=== PATIENT | male | born 1975 | race Two or more races ===

== ENCOUNTER 2019-06-28 15:09 | Emergency (ER) | payer OTHER ==
[~2019-06-28] VITALS: Ht 172.7 cm; Wt 132.9 kg
[~2019-06-28 15:09] MED LIST: FIORICET 50-301 EACH; FIORICET 50-321 EACH PO
[2019-06-28] MEDS ORDERED: TOPROL XL25 M1 (15:27)
== END 2019-06-28 20:29 | disposition home or self-care (01) ==
LOC: ER 15:09
DX: R07.89 Other chest pain (principal); F06.4 Anxiety disorder due to known physiological condition

== ENCOUNTER 2019-07-12 10:36 | Emergency (ER) | payer OTHER ==
[~2019-07-12] VITALS: Ht 172.7 cm; Wt 127.0 kg
[~2019-07-12 10:36] MED LIST changes: +TOPROL XL25 M1
[2019-07-12] MEDS ORDERED: CRESTOR10 MG (10:53)
[2019-07-12] MEDS ORDERED: ZIAC 2.5-6.251 EACH (10:54)
== END 2019-07-12 16:44 | disposition home or self-care (01) ==
LOC: ER 10:36
DX: R07.89 Other chest pain (principal); R00.2 Palpitations; F06.4 Anxiety disorder due to known physiological condition